=== PATIENT | male | born 1975 | race Caucasian/White ===

== ENCOUNTER 2017-03-02 11:23 | Emergency (ER) | payer MEDICAID ==
[2017-03-02 11:30] VITALS: RESP 20
--- NOTE | 2017-03-02 11:58 | C.PDOC ---
History Of Present Illness 41 y/o male presents to ED with complaints of exacerbating chronic back pain for 2 weeks. Pain is described as "burning and is localized on bilateral lower back radiating to left leg. Patient had MRI done in 2016 and showed Herniated Disc T11-L1 and reports pending pain management but "cannot wait that long". Patient states no longer has relief with Ultram, last dose was this morning. Patient states he works in [employer] and believes cold is making the pain worse. Patient denies Hx of Epidural, urinary symptoms, nausea, vomiting, abdominal pain, numbness or any other complaints at this time. EXAC CHRONIC BACK PAIN X 2 WEEKS. MRI 2016 +LINDA DISC T11-L1. PENDING PAIN MGMT IN [facility] "BUT I CAN'T WAIT THAT LONG". NO LONGER RELIEF W ULTRAM LAST DOSE THIS MORNING. B/L LOWER BACK RADIATION L LEG. NO WEAKNESS. PAIN IS "BURNING". NO OTHER ASSOC SX. PRIOR HO EPIDURAL. PS WORKED IN [employer], BELIEVES COLD MAKING THE PAIN WORSE EXAM MOD DIST NONTOXIC BACK LIMITED ROM DUE TO PAIN. +B/L LOWER BACK SPASM W LOCAL TEND. NO LS TEND. ATRAUM NEURO INTACT SKIN NO RASH Time Seen by Provider: 03/02/17 11:40 Chief Complaint (Nursing): Back Pain History Per: Patient History/Exam Limitations: no limitations Onset/Duration Of Symptoms: Days Current Symptoms Are (Timing): Still Present Quality Of Discomfort: Burning Past Medical History Reviewed: Historical Data, Nursing Documentation, Vital Signs Vital Signs: Last Vital Signs Temp 97.7 F 03/02/17 13:24 Pulse 62 03/02/17 13:24 Resp 20 03/02/17 13:24 BP 134/92 H 03/02/17 13:24 Pulse Ox 98 03/02/17 13:35 Family History: States: No Known Family Hx Review Of Systems Except As Marked, All Systems Reviewed And Found Negative. Cardiovascular: Negative for: Chest Pain Respiratory: Negative for: Shortness of Breath Gastrointestinal: Negative for: Abdominal Pain Genitourinary: Negative for: Dysuria, Frequency, Incontinence Musculoskeletal: Positive for: Back Pain. Negative for: Neck Pain Skin: Negative for: Rash Neurological: Negative for: Numbness Physical Exam - Physical Exam Appears: Non-toxic, Other (Moderate distress) Skin: Normal Color, Warm, No Rash Head: Atraumatic, Normacephalic Eye(s): bilateral: Normal Inspection Oral Mucosa: Moist Neck: Normal ROM, Supple Chest: Symmetrical Back: Muscle Spasm (Bilateral lower ), No Paraspinal Tenderness, Other (Limited ROM seondary to pain, Local tenderness to b/l lower back) Extremity: Normal ROM, Capillary Refill (<2 seconds) Neurological/Psych: Oriented x3, Normal Speech, Normal Cognition ED Course And Treatment O2 Sat by Pulse Oximetry: 98 (RA) Pulse Ox Interpretation: Normal Reevaluation Time: 13:24 Reassessment Condition: Improved (AMBUL WO DIFF.) Disposition Counseled Patient/Family Regarding: Diagnosis, Need For Followup, Rx Given - Disposition Referrals: PAIN,MGMT [Other] Disposition: HOME/ ROUTINE Disposition Time: 13:24 Condition: IMPROVED Additional Instructions: FOLLOW UP WITH PAIN MANAGEMENT SCHEDULED. HEAT TO AFFECTED AREA NEEDED FOR PAIN RELIEF. STOP TRAMADOL IF TAKING PERCOCET. Prescriptions: oxyCODONE/Acetaminophen [Percocet 5/325 mg Tab] 1 tab PO QID PRN #14 tab PRN Reason: Pain Instructions: Sciatica (ED) Forms: Accompanied To ED By:, Cohuman (Tajik), Work Excuse - Clinical Impression Clinical Impression: Acute exacerbation of chronic low back pain - PA / [employer] / Resident Statement MD/DO has examined the patient and agrees with the treatment plan. - Scribe Statement The provider has reviewed the documentation as recorded by the Girish Zarate All medical record entries made by the Humaibclotilde were at my direction and personally dictated by me. I have reviewed the chart and agree that the record accurately reflects my personal performance of the history, physical exam, medical decision making, and the department course for this patient. I have also personally directed, reviewed, and agree with the discharge instructions and disposition.
[2017-03-02] MEDS ORDERED: Oxycodone/Acetaminophen 5/325 mg Tab PO STA (11:59)
[2017-03-02] MEDS ORDERED: Oxycodone/Acetaminophen 5/325 mg Tab ONE (12:04)
[2017-03-02 13:25] VITALS: BP 134/92; PULSE 62; TEMP 97.7
[2017-03-02 13:34] VITALS: O2SAT 98
== END 2017-03-02 13:48 | disposition home or self-care (01) ==
LOC: C.ER 11:23 → EDSEX 11:23 → C.ER 13:48
DX: G89.29 Other chronic pain (principal); M54.5 Low back pain
CPT/HCPCS: 96372; 99283; J1885; J8540